=== PATIENT | male | born 1960 | race Caucasian/White ===

== ENCOUNTER 2022-02-14 15:28 | Emergency (ER) | payer OTHER, BC | END 2022-02-14 17:30 | disposition home or self-care (01) | LOC: LL.ED 15:28 | DX: S89.92XA Unspecified injury of left lower leg, initial encounter (principal); E11.9 Type 2 diabetes mellitus without complications; E66.9 Obesity, unspecified; Z68.30 Body mass index [BMI] 30.0-30.9, adult; Z88.2 Allergy status to sulfonamides; W22.8XXA Striking against or struck by other objects, initial encounter | CPT/HCPCS: 73562-LT; 99283-25 ==

== ENCOUNTER 2022-07-19 11:13 | Day surgery (SDC) | payer BC, OTHER ==
[~2022-07-19 11:13] MED LIST: Propofol 200 MG/20 ML SDV ONE
[2022-07-19] MEDS ORDERED: Lactated Ringers 1,000 ML IV SCH (11:30)
[2022-07-19] MEDS ORDERED: Sodium Chloride 0.9% 10 ML Syringe FLUSH PRN (11:30)
[2022-07-19] MEDS ORDERED: Propofol 200 MG/20 ML SDV ONE ×2 (14:09→14:23)
== END 2022-07-19 15:20 | disposition home or self-care (01) ==
LOC: LL.SDS 11:13
PROVIDERS: ATTEND Surgery
DX: Z12.11 Encounter for screening for malignant neoplasm of colon (principal); D12.5 Benign neoplasm of sigmoid colon; E78.5 Hyperlipidemia, unspecified; E11.22 Type 2 diabetes mellitus with diabetic chronic kidney disease; I12.9 Hypertensive chronic kidney disease with stage 1 through stage 4 chronic kidney disease, or unspecified chronic kidney disease; N18.30 Chronic kidney disease, stage 3 unspecified; G47.33 Obstructive sleep apnea (adult) (pediatric); E66.9 Obesity, unspecified; Z79.899 Other long term (current) drug therapy; Z88.2 Allergy status to sulfonamides; Z83.71 Family history of colonic polyps; Z80.0 Family history of malignant neoplasm of digestive organs; Z79.4 Long term (current) use of insulin; Z79.82 Long term (current) use of aspirin; Z91.018 Allergy to other foods; Z68.41 Body mass index [BMI] 40.0-44.9, adult
CPT/HCPCS: 00812; 45385; 82947; J2704; J7120